=== PATIENT | female | born 1975 | race Two or more races ===

== ENCOUNTER 2017-02-15 10:30 | Emergency (ER) | payer SELFPAY ==
[2017-02-15] MEDS ORDERED: NORMAL SALINE 1000 ML 1,000 ML IV ONE (10:38)
--- NOTE | 2017-02-15 10:39 | ER Document Report ---
ED Medical Screen (RME) - General Chief Complaint: Abdominal Pain Stated Complaint: ABDOMINAL PAIN Time Seen by Provider: 02/15/17 10:37 Mode of Arrival: Ambulatory Information source: Patient, Relative TRAVEL OUTSIDE OF THE [place] IN LAST 30 DAYS: No - HPI Patient complains to provider of: abd pain/diarrhea Onset: Other - pt. with c/o abdominal pain and diarrhea for the past 3-5 days. Denies vomiting. - Related Data Allergies/Adverse Reactions: Penicillins Allergy (Verified 02/15/17 10:34) Past Medical History Renal/ Medical History: Denies: Hx Peritoneal Dialysis Physical Exam - Vital signs Vitals: Temp Pulse Resp BP Pulse Ox 98.6 F 83 20 118/72 98 02/15/17 10:32 02/15/17 10:32 02/15/17 10:32 02/15/17 10:32 02/15/17 10:32 Course - Vital Signs Vital signs: Temp Pulse Resp BP Pulse Ox 98.6 F 83 20 118/72 98 02/15/17 10:32 02/15/17 10:32 02/15/17 10:32 02/15/17 10:32 02/15/17 10:32
--- NOTE | 2017-02-15 11:22 | ER Document Report ---
ED GI/ - General Mode of Arrival: Ambulatory Information source: Patient TRAVEL OUTSIDE OF THE [place] IN LAST 30 DAYS: No - HPI Patient complains to provider of: Abdominal pain, Diarrhea Onset: Other - 3 days Associated symptoms: Other - see above <HERVE JONES - Last Filed: 02/15/17 11:00> <ASHISH WINSTON - Last Filed: 02/15/17 16:28> - General Chief Complaint: Abdominal Pain Stated Complaint: ABDOMINAL PAIN Time Seen by Provider: 02/15/17 10:37 Notes: Patient is a 41 year old female who presents to the ED with complaints of abdominal pain with diarrhea and hot/cold chills x3 days. Patient denies nausea or vomiting. Patient has never had this before. There is no other sick contact. She also has a headache, subjective fever and generalized body aches. History limited due to language barrier. (HERVE JONES) - Related Data Allergies/Adverse Reactions: Penicillins Allergy (Verified 02/15/17 10:34) Past Medical History - General Information source: Patient - Social History Smoking Status: Unknown if Ever Smoked Family History: Reviewed & Not Pertinent Renal/ Medical History: Denies: Hx Peritoneal Dialysis Past Surgical History: Reports: Hx Cholecystectomy <HERVE JONES - Last Filed: 02/15/17 11:00> Review of Systems - Review of Systems Constitutional: See HPI, Chills, Fever EENT: No symptoms reported Cardiovascular: No symptoms reported Respiratory: No symptoms reported Gastrointestinal: See HPI, Abdominal pain, Diarrhea. denies: Nausea, Vomiting Genitourinary: No symptoms reported Female Genitourinary: No symptoms reported Musculoskeletal: See HPI, Other - body aches Skin: No symptoms reported Hematologic/Lymphatic: No symptoms reported Neurological/Psychological: See HPI, Headaches <HERVE JONES - Last Filed: 02/15/17 11:00> Physical Exam - General General appearance: Appears well, Alert In distress: None - HEENT Head: Normocephalic, Atraumatic Eyes: Normal Extraocular movements intact: Yes Pupils: PERRL - Respiratory Respiratory status: No respiratory distress Chest palpation: Normal - Cardiovascular Rhythm: Regular Heart sounds: Normal auscultation Murmur: No - Abdominal Inspection: Normal Distension: No distension Tenderness: Tender - diffuse - Back Back: Normal - Extremities General upper extremity: Normal inspection, Normal ROM General lower extremity: Normal inspection, Normal ROM. No: Edema - Neurological Neuro grossly intact: Yes - Psychological Associated symptoms: Normal affect, Normal mood - Skin Skin Temperature: Warm Skin Moisture: Dry Skin Color: Normal <HERVE JONES - Last Filed: 02/15/17 11:00> - Vital signs Vitals: Temp Pulse Resp BP Pulse Ox 98.6 F 83 20 118/72 98 02/15/17 10:32 02/15/17 10:32 02/15/17 10:32 02/15/17 10:32 02/15/17 10:32 Course <HERVE JONES - Last Filed: 02/15/17 11:00> - Laboratory Result Diagrams: 02/15/17 11:15 02/15/17 11:15 <ASHISH WINSTON - Last Filed: 02/15/17 16:28> - Re-evaluation Re-evalutation: 02/15/17 14:45 It is unclear what is causing this patient to have diarrhea and abdominal pain. The initial history found that she had 3-4 days of diarrhea and discomfort. I am now told that she has had diarrhea for a very long time, it is her usual type of bowel movement, but the abdominal pain is what is new and different. I have called and spoke with her , who is fluent in [place], who reports that she had an ultrasound 2 weeks ago due to abdominal pain. The abdominal pain at that time was central and not focal to the right upper quadrant. He was told the ultrasound was negative. With an unclear cause of ongoing abdominal pain, we will perform a CT scan of the abdomen today. I discussed this with the patient as well and she agrees. We will also test stool for C. difficile and obtain a stool culture given her long history of diarrhea. 02/15/17 16:27 Reexamination at this time finds the patient feeling better, less nausea. She is drinking her contrast for CT. Dr. Maria will assume care of the patient at this time and check on the CT scan. He and I spoke with the patient together. (ASHISH WINSTON) - Vital Signs Vital signs: Temp Pulse Resp BP Pulse Ox 98.6 F 83 20 118/72 98 02/15/17 10:32 02/15/17 10:32 02/15/17 10:32 02/15/17 10:32 02/15/17 10:32 - Laboratory Laboratory results interpreted by me: 02/15/17 02/15/17 11:15 11:15 Potassium 3.4 L Carbon Dioxide 21 L BUN 5 L Urine Ketones TRACE H Urine Blood MODERATE H Discharge <HERVE JONES - Last Filed: 02/15/17 11:00> <ASHISH WINSTON - Last Filed: 02/15/17 16:28> - Discharge Clinical Impression: Diarrhea Qualifiers: Diarrhea type: unspecified type Qualified Code(s): R19.7 - Diarrhea, unspecified Abdominal pain Qualifiers: Abdominal location: generalized Qualified Code(s): R10.84 - Generalized abdominal pain Scribe Documentation - Scribe Written by Scribe:: shashi Hines, 02/15/2017, 1102 acting as scribe for :: Megan <HERVE JONES - Last Filed: 02/15/17 11:00>
[2017-02-15 11:38] LABS: ABSOLUTE LYMPHOCYTES (AUTO) 1.3 10^3/uL (0.5-4.7); ABSOLUTE MONOCYTES (AUTO) 0.6 10^3/uL (0.1-1.4); ABSOLUTE NEUT (AUTO) 6.5 10^3/uL (1.7-8.2); BASOPHILS % (AUTO) 0.3 % (0-2); EOSINOPHILS % (AUTO) 0.3 % (0-6); HEMATOCRIT 39.4 % (36.0-47.0); HEMOGLOBIN 13.3 g/dL (12.0-15.5); HGB HCT DIFFERENCE 0.5; LYMPHOCYTES % (AUTO) 15.8 % (13-45); MEAN CORPUSCULAR HEMOGLOBIN 30.2 pg (27.0-33.4); MEAN CORPUSCULAR HGB CONC 33.8 g/dL (32.0-36.0); MEAN CORPUSCULAR VOLUME 89 fl (80-97); MONOCYTES % (AUTO) 6.7 % (3-13); RED BLOOD COUNT 4.41 10^6/uL (3.72-5.28); RED CELL DISTRIBUTION WIDTH 12.9 % (11.5-14.0); SEGMENTED NEUTROPHILS % (AUTO) 76.9 % (42-78); WHITE BLOOD COUNT 8.5 10^3/uL (4.0-10.5)
[2017-02-15 12:12] LABS: ALANINE AMINOTRANSFERASE 31 U/L (9-52); ALBUMIN 4.3 g/dL (3.5-5.0); ALKALINE PHOSPHATASE 97 U/L (38-126); ANION GAP 13 (5-19); ASPARTATE AMINO TRANSFERASE 25 U/L (14-36); BILIRUBIN,DIRECT 0.4 mg/dL (0.0-0.4); BILIRUBIN,TOTAL 0.5 mg/dL (0.2-1.3); BLOOD UREA NITROGEN 5 mg/dL (7-20); CALCIUM 9.9 mg/dL (8.4-10.2); CARBON DIOXIDE 21 mmol/L (22-30); CHLORIDE 103 mmol/L (98-107); CREATININE RESULT 0.54 mg/dL (0.52-1.25); GLUCOSE 96 mg/dL (75-110); LIPASE 71.2 U/L (23-300); POTASSIUM 3.4 mmol/L (3.6-5.0); SODIUM 137.4 mmol/L (137-145); TOTAL PROTEIN 7.9 g/dL (6.3-8.2)
[2017-02-15 13:15] LABS: APPEARANCE,URINE CLEAR; BILIRUBIN,URINE NEGATIVE (NEGATIVE); GLUCOSE, URINE NEGATIVE (NEGATIVE); KETONES,URINE TRACE mg/dL (NEGATIVE); LEUKOCYTE ESTERASE,URINE NEGATIVE (NEGATIVE); NITRITE,URINE NEGATIVE (NEGATIVE); PROTEIN,URINE NEGATIVE (NEGATIVE); URINE SPECIFIC GRAVITY 1.004; UROBILINOGEN,URINE NEGATIVE mg/dL (<2.0)
--- NOTE | 2017-02-15 14:09 | RADIOLOGY REPORT (SQ) ---
EXAM DESCRIPTION: ACUTE ABDOMEN SERIES COMPLETED DATE/TIME: 02/15/2017 1:50 pm REASON FOR STUDY: abd pain/diarrhea COMPARISON: None. NUMBER OF VIEWS: Three views. TECHNIQUE: Frontal chest, supine abdomen and upright abdomen radiographic images acquired. LIMITATIONS: None. FINDINGS: CHEST: Lungs clear of infiltrates. FREE AIR: None. No abnormal gas collections. BOWEL GAS PATTERN: Nonobstructive pattern. No dilated loops or air fluid levels. CALCIFICATIONS: No suspicious calcifications. HARDWARE: None in the abdomen. SOFT TISSUES: No gross mass or suggestion of organomegaly. BONES: No acute fracture. No worrisome bone lesions. OTHER: No other significant finding. IMPRESSION: NO RADIOGRAPHIC EVIDENCE FOR ACUTE ABDOMINAL DISEASE. TECHNICAL DOCUMENTATION: JOB ID: [id number] [employer]- All Rights Reserved
[2017-02-15] MEDS ORDERED: ONDANSETRON HCL INJ/PF 4 MG/2 ML SDV IV ONE (14:35)
--- NOTE | 2017-02-15 18:35 | RADIOLOGY REPORT (SQ) ---
EXAM DESCRIPTION: CT ABD/PELVIS WITH IV ORAL COMPLETED DATE/TIME: 02/15/2017 6:11 pm REASON FOR STUDY: Abdominal pain COMPARISON: None. TECHNIQUE: CT scan of the abdomen and pelvis performed using helical scanning technique with dynamic intravenous contrast injection. No oral contrast. Images reviewed with lung, soft tissue, and bone windows. Reconstructed coronal and sagittal MPR images reviewed. Delayed images for evaluation of the urinary system also acquired. All images stored on PACS. All CT scanners at this facility use dose modulation, iterative reconstruction, and/or weight based d osing when appropriate to reduce radiation dose to as low as reasonably achievable (ALARA). [facility]: Dose Right [facility]: CareDose [facility]: Dose Right [facility]: Teradose 4D [facility]: Health Benefits Direct CONTRAST TYPE AND DOSE: contrast/concentration: Isovue 370.00 mg/ml; Total Contrast Delivered: 61.0 ml; Total Saline Delivered: 40.0 ml RENAL FUNCTION: None required. The patient is less than 50 years old. RADIATION DOSE: Up-to-date CT equipment and radiation dose reduction techniques were employed. CTDIv ol: 4.8 - 5.4 mGy. DLP: 482 mGy-cm.. LIMITATIONS: None. FINDINGS: LOWER CHEST: No significant findings. No nodules or infiltrates. LIVER: Normal size. No masses. No dilated ducts. SPLEEN: Normal size. No focal lesions. PANCREAS: No masses. No significant calcifications. No adjacent inflammation or peripancreatic fluid collections. Pancreatic duct not dilated. GALLBLADDER: Surgically absent. ADRENAL GLANDS: No significant masses or asymmetry. RIGHT KIDNEY AND URETER: No solid masses. No significant calcifications. No hydronephrosis or hyd roureter. LEFT KIDNEY AND URETER: No solid masses. No significant calcifications. No hydronephrosis or hydr oureter. AORTA AND VESSELS: No aneurysm. No dissection. Renal arteries, SMA, celiac without stenosis. RETROPERITONEUM: No retroperitoneal adenopathy, hemorrhage or masses. BOWEL AND PERITONEAL CAVITY: Mild colonic wall thickening throughout the colon, this may reflect acut e or chronic inflammatory disease. No masses, free fluid or peritoneal masses. APPENDIX: Normal. PELVIS: No mass. No free fluid. Normal bladder. ABDOMINAL WALL: No masses. No hernias. BONES: No significant or acute findings. OTHER: No other significant finding. IMPRESSION: Mild colonic wall thickening throughout the colon, this may reflect acute or chronic inf lammatory disease. No obstruction or fluid collection. TECHNICAL DOCUMENTATION: JOB ID: [id number] Quality ID # [id number]: Final reports with documentation of one or more dose reduction techniques (e.g., Au tomated exposure control, adjustment of the mA and/or kV according to patient size, use of iterative reconstruction technique) 2010 [email or web address]- All Rights Reserved
[2017-02-15 19:35] VITALS: BP 101/63
== END 2017-02-15 19:34 | disposition home or self-care (01) ==
LOC: ER 10:30
DX: R10.84 Generalized abdominal pain (principal); R19.7 Diarrhea, unspecified; R51 Headache; Z90.49 Acquired absence of other specified parts of digestive tract; R50.9 Fever, unspecified
CPT/HCPCS: 99284; 96361; 96374; 36415; 83690; 85025; 81025; 80053; 81001; 87493 ×2; 74022; 74177; J2405; J7030

== ENCOUNTER 2017-08-22 08:42 | Emergency (ER) | payer SELFPAY ==
[2017-08-22 09:50] LABS: APPEARANCE,URINE CLEAR; BILIRUBIN,URINE NEGATIVE (NEGATIVE); COLOR,URINE STRAW; GLUCOSE, URINE NEGATIVE (NEGATIVE); KETONES,URINE NEGATIVE (NEGATIVE); LEUKOCYTE ESTERASE,URINE NEGATIVE (NEGATIVE); NITRITE,URINE NEGATIVE (NEGATIVE); PROTEIN,URINE NEGATIVE (NEGATIVE); URINE SPECIFIC GRAVITY 1.008; UROBILINOGEN,URINE NEGATIVE mg/dL (<2.0)
--- NOTE | 2017-08-22 09:52 | ER Document Report ---
ED General - General Mode of Arrival: Ambulatory Information source: Patient TRAVEL OUTSIDE OF THE [place] IN LAST 30 DAYS: No - General Chief Complaint: Flank Pain Stated Complaint: FLANK PAIN Notes: Patient is a 41 year old female presenting to the emergency department accompanied by friend (who is interpreting for her) complaining of bilateral lower back pain onset 2 days ago. Patient describes the pain as sharp that radiates into her legs and sometimes her neck. Patient states she took some medicine at home that helped alleviate her pain for a brief amount of time. Patient denies any recent injury, numbness, tingling, dysuria, trauma or fevers. Patient is asked if she wants a historical interpreter multiple times but denies wanting one. (CHEKO HARO) - Related Data Allergies/Adverse Reactions: Penicillins Allergy (Verified 02/15/17 10:34) Past Medical History - General Information source: Patient - Social History Smoking Status: Never Smoker Cigarette use (# per day): No Chew tobacco use (# tins/day): No Smoking Education Provided: No Frequency of alcohol use: None Family History: Reviewed & Not Pertinent Past Surgical History: Reports: Hx Cholecystectomy Review of Systems - Review of Systems Constitutional: No symptoms reported EENT: No symptoms reported Cardiovascular: No symptoms reported Respiratory: No symptoms reported Gastrointestinal: No symptoms reported Genitourinary: See HPI, Flank pain Female Genitourinary: No symptoms reported Musculoskeletal: See HPI Skin: No symptoms reported Hematologic/Lymphatic: No symptoms reported Neurological/Psychological: No symptoms reported -: Yes All other systems reviewed and negative Physical Exam - Vital signs Vitals: Temp Pulse Resp BP Pulse Ox 98.0 F 61 16 105/66 100 08/22/17 08:48 08/22/17 08:48 08/22/17 08:48 08/22/17 08:48 08/22/17 08:48 - Notes Notes: GENERAL: Alert, interacts well. No acute distress. HEAD: Normocephalic, atraumatic. EYES: Pupils equal, round, and reactive to light. Extraocular movements intact. ENT: Oral mucosa moist, tongue midline. NECK: Full range of motion. Supple. Trachea midline. LUNGS: Clear to auscultation bilaterally, no wheezes, rales, or rhonchi. No respiratory distress. HEART: Regular rate and rhythm. No murmurs, gallops, or rubs. ABDOMEN: Soft, suprabupic tenderness to palpation. Non-distended. Bowel sounds present in all 4 quadrants. EXTREMITIES: Moves all 4 extremities spontaneously. Negative straight leg raise , causes pain up to just proximal to the popliteal fossa. No edema, radial and dorsalis pedis pulses 2/4 bilaterally. No cyanosis. NEUROLOGICAL: Alert and oriented x3. Normal speech. Sensations intact, no saddle anaesthesia. 5/5 Great toe strength. Biceps and patellar DTRs 2+ bilaterally. PSYCH: Normal affect, normal mood. SKIN: Warm, dry, normal turgor. No rashes or lesions noted. BACK: Tender to palpation to the bilateral paraspinal muscles, no rashes, step- off or deformities. (CHEKO HARO) Course - Re-evaluation Re-evalutation: 08/22/17 10:18 Urinalysis shows small blood but 0 RBCs on microscopic, hCG is negative, no leukocyte esterase or nitrates. Negative straight leg raising test, no saddle anesthesia, no bowel or bladder dysfunction. Examination does not show any red flag symptoms or anything concerning for cauda equina, no evidence of kidney stone or urinary tract infection. Consistent with paraspinal lumbar muscle spasm. Patient will be treated with Toradol and Robaxin and discharged home. ( SUSAN MENDIETA) - Vital Signs Vital signs: Temp Pulse Resp BP Pulse Ox 98.0 F 60 16 101/58 L 99 08/22/17 11:13 08/22/17 11:13 08/22/17 11:13 08/22/17 11:13 08/22/17 11:13 - Laboratory Laboratory results interpreted by me: 08/22/17 09:29 Urine Blood SMALL H Discharge - Discharge Clinical Impression: Lumbar paraspinal muscle spasm Condition: Stable Disposition: HOME, SELF-CARE Instructions: Low Back Pain ([facility]) Prescriptions: Methocarbamol [Robaxin 750 mg Tablet] 750 mg PO ASDIR PRN #40 tablet PRN Reason: Referrals: MILA JACOB MD [COMMUNITY BASED STAFF] - Follow up in 3-5 days Print Language: Kazakh Jeromeibcaro Attestation: 08/22/17 15:53 I personally performed the services described in the documentation, reviewed and edited the documentation which was dictated to the scribe in my presence, and it accurately records my words and actions. (SUSAN MENDIETA) Scribe Documentation - Scribe Written by Kimmy:: Kimmy Issa, 08/22/2017 10:09 acting as scribe for :: Mike
[2017-08-22] MEDS ORDERED: KETOROLAC TROMETHAMINE 60 MG/2 ML SDV IM ONE (10:18)
[2017-08-22] MEDS ORDERED: METHOCARBAMOL 750 MG TABLET PO ONE (10:18)
[2017-08-22 11:14] VITALS: BP 101/58
== END 2017-08-22 11:20 | disposition home or self-care (01) ==
LOC: ER 08:42
DX: M62.830 Muscle spasm of back (principal); Z88.0 Allergy status to penicillin
CPT/HCPCS: 99284; 96372; 81025; 81001; J1885; J3490

== ENCOUNTER 2017-08-24 07:33 | Emergency (ER) | payer SELFPAY ==
--- NOTE | 2017-08-24 08:31 | ER Document Report ---
HPI - HPI Pain Level: 4 - CONSTITUTIONAL Constitutional: DENIES: Fever, Chills - URINARY Urinary: DENIES: Dysuria, Urgency, Frequency - REPRODUCTIVE Reproductive: DENIES: : Past Medical History - Social History Smoking Status: Never Smoker Chew tobacco use (# tins/day): No Frequency of alcohol use: None Drug Abuse: None Family History: Reviewed & Not Pertinent Patient has suicidal ideation: No Patient has homicidal ideation: No Renal/ Medical History: Denies: Hx Peritoneal Dialysis Past Surgical History: Reports: Hx Cholecystectomy Vertical Provider Document - INFECTION CONTROL TRAVEL OUTSIDE OF THE [place] IN LAST 30 DAYS: No - RESPIRATORY O2 Sat by Pulse Oximetry: 100 Course - Vital Signs Vital signs: Temp Pulse Resp BP Pulse Ox 97.8 F 66 18 100/53 L 100 08/24/17 07:40 08/24/17 07:40 08/24/17 07:40 08/24/17 07:40 08/24/17 07:40
[2017-08-24 08:58] LABS: APPEARANCE,URINE CLEAR; BILIRUBIN,URINE NEGATIVE (NEGATIVE); COLOR,URINE STRAW; GLUCOSE, URINE NEGATIVE (NEGATIVE); KETONES,URINE NEGATIVE (NEGATIVE); LEUKOCYTE ESTERASE,URINE NEGATIVE (NEGATIVE); NITRITE,URINE NEGATIVE (NEGATIVE); PROTEIN,URINE NEGATIVE (NEGATIVE); URINE SPECIFIC GRAVITY 1.011; UROBILINOGEN,URINE NEGATIVE mg/dL (<2.0)
[2017-08-24] MEDS ORDERED: LIDOCAINE 5% (700 MG) TRANSDERMAL ADH..PATCH TP ONE (09:42)
[2017-08-24] MEDS ORDERED: DEXAMETHASONE SOD PHOS INJ 10 MG/1 ML VIAL IM ONE (09:42)
[2017-08-24] MEDS ORDERED: ACETAMINOPHEN 325 MG TABLET PO ONE (09:42)
--- NOTE | 2017-08-24 09:48 | ER Document Report ---
HPI - HPI Pain Level: 4 Notes: Patient is a 41-year-old female with no significant past medical history who presents to the ED complaining of bilateral lower back and upper buttock pain 5 days without precipitating known injury. Patient is accompanied by her spouse who is acting as her research and development director today. Patient declines any formal research and development director. Patient states that the pain is primarily to her bilateral back and will radiate up each side of her spine. Patient states that the pain does not radiate into her legs. The pain is worsened with truncal movements. Patient has not had any injections or procedures to her lower back. She denies any smoking or IV drug use. Patient states that she is eating and drinking without any difficulties. She is urinating normally and having normal bowel movements. She has not had any vaginal odor, bleeding, or discharge. Patient describes her pain as a burning sensation. Patient was evaluated 2 days ago and had a negative urine/hCG and was given Toradol and Robaxin. Patient states that those medicines have not really helped. Denies any headache, fever, neck pain, URI, sore throat, chest pain, palpitations, syncope, cough, shortness of breath, wheeze, dyspnea, abdominal pain, nausea/vomiting/diarrhea, urinary retention, dysuria, hematuria, loss of control of bowel or bladder, numbness/ tingling, saddle anesthesia, muscle paralysis/weakness, or rash. - ROS Systems Reviewed and Negative: Yes All other systems reviewed and negative - CONSTITUTIONAL Constitutional: DENIES: Fever, Chills - URINARY Urinary: DENIES: Dysuria, Urgency, Frequency - REPRODUCTIVE Reproductive: DENIES: : Past Medical History - Social History Smoking Status: Never Smoker Chew tobacco use (# tins/day): No Frequency of alcohol use: None Drug Abuse: None Family History: Reviewed & Not Pertinent Patient has suicidal ideation: No Patient has homicidal ideation: No Renal/ Medical History: Denies: Hx Peritoneal Dialysis Past Surgical History: Reports: Hx Cholecystectomy Vertical Provider Document - CONSTITUTIONAL Agree With Documented VS: Yes Notes: PHYSICAL EXAMINATION: GENERAL: Well-appearing, well-nourished and in no acute distress. LUNGS: Breath sounds clear to auscultation bilaterally and equal. No wheezes rales or rhonchi. HEART: Regular rate and rhythm without murmurs, rubs, gallops. ABDOMEN: Soft, nontender, nondistended abdomen. No guarding, no rebound. No masses appreciated. Normal bowel sounds present. No CVA tenderness bilaterally. No pulsatile mass Musculoskeletal: LE's b/l: FROM to passive/active. Strength 5+/5. No deficits noted. No bony tenderness of extremities. Back: FROM to passive/active. Strength 5+/5. No vertebral point tenderness, stepoffs, or deformities. No other bony tenderness, erythema, swelling, or ecchymosis. SLR negative b/l. + tenderness to the L-paraspinal mm b/l. Mild spasming. + b/l SI jt tenderness. No foot drop Extremities: No cyanosis, clubbing, or edema b/l. Peripheral pulses 2+. Capillary refill less than 2 seconds. NEUROLOGICAL: Normal speech, normal gait. Normal sensory, motor exams. Reflexes 2+ b/l. PSYCH: Normal mood, normal affect. SKIN: Warm, Dry, normal turgor, no rashes or lesions noted. - INFECTION CONTROL TRAVEL OUTSIDE OF THE [place] IN LAST 30 DAYS: No - RESPIRATORY O2 Sat by Pulse Oximetry: 100 Course - Re-evaluation Re-evalutation: 08/24/17 10:47 Patient is an afebrile, well-hydrated, 41-year-old female who presents to the ED with lower back pain and sacroiliitis, suspect inflammatory muscle spasming versus muscle strain. Vitals are acceptable. PE is otherwise unremarkable for any focal neurological deficits. L-spine x-ray was unremarkable for any acute pathology. Patient's tenderness is in the paraspinal muscles as well as the SI joints bilaterally. No other labs or imaging warranted at this time based on H& P. Patient was given Decadron as well as Lidoderm patch. Low suspicion for any meningitis, fracture, expanding/ruptured AAA, cauda equina syndrome, epidural mass lesion/abscess, herniated disc causing severe spinal stenosis, or other systemic infection at this time. Patient is aware that this condition can change from initial presentation and that she needs monitor symptoms closely for any acute changes. Recommend conservative measures for symptoms otherwise. Recheck with your PCM in 3-5 days. Consider consult with orthopedics/physical therapy. Return to the ED with any worsening/concerning symptoms otherwise as reviewed discharge. Patient and spouse are in agreement. - Vital Signs Vital signs: Temp Pulse Resp BP Pulse Ox 97.8 F 66 18 100/53 L 100 08/24/17 07:40 08/24/17 07:40 08/24/17 07:40 08/24/17 07:40 08/24/17 08:31 - Laboratory Laboratory results interpreted by me: 08/24/17 08:15 Urine Blood SMALL H Discharge - Discharge Clinical Impression: Bilateral sacroiliitis Low back pain Qualifiers: Chronicity: acute Back pain laterality: bilateral Sciatica presence: without sciatica Qualified Code(s): M54.5 - Low back pain Condition: Stable Disposition: HOME, SELF-CARE Instructions: Ice Packs ([facility]), Low Back Pain ([facility]), Muscle Strain ([facility]), Stretching Exercises for the Back ([facility]), Warm Packs ([facility]) Additional Instructions: Rest, Ice and ice massage Tylenol/ibuprofen as needed Light stretches daily Strength exercises as able Moist heat and massage may help F/u with your PCP in 3-5 days for a recheck Consider consult(s) with Orthopedics/physical therapy for ongoing/worsening symptoms Return to the ED with any worsening symptoms and/or development of fever, headache, chest pain, palpitations, syncope, shortness of breath, trouble breathing, abdominal pain, n/v/d, blood in stool/urine, loss of control of bowel /bladder, urinary retention, muscle weakness/paralysis, saddle anesthesia, numbness/tingling, or other worsening symptoms that are concerning to you. Prescriptions: Naproxen 500 mg PO BID PRN #30 tablet PRN Reason: Referrals: [facility] ([facility] [Provider Group] - Follow up as needed
--- NOTE | 2017-08-24 10:44 | RADIOLOGY REPORT (SQ) ---
EXAM DESCRIPTION: L SPINE WHOLE COMPLETED DATE/TIME: 08/24/2017 10:17 am REASON FOR STUDY: low back pain COMPARISON: None. NUMBER OF VIEWS: Five views including obliques. TECHNIQUE: AP, lateral, oblique, and sacral radiographic images acquired of the lumbar spine. LIMITATIONS: None. FINDINGS: MINERALIZATION: Normal. SEGMENTATION: Transitional vertebra. ALIGNMENT: Normal. VERTEBRAE: Maintained height. No fracture or worrisome bone lesion. DISCS: Preserved height. No significant osteophytes or end plate irregularity. POSTERIOR ELEMENTS: Pedicles and facets are intact. No pars defect or posterior arch defects. HARDWARE: None in the spine. PARASPINAL SOFT TISSUES: Normal. PELVIS: Intact as visualized. No fractures or worrisome bone lesions. SI joints intact. OTHER: No other significant finding. IMPRESSION: No acute findings. TECHNICAL DOCUMENTATION: JOB ID: [id number] [employer]- All Rights Reserved Reading location - IP/workstation name: [email or web address]
[2017-08-24] MEDS ORDERED: HYDROCODONE/ACETAMINOPHEN 5-325 MG (6 TAB/ER DISP) PO PRN (10:48)
[2017-08-24 11:09] VITALS: BP 100/59
== END 2017-08-24 11:10 | disposition home or self-care (01) ==
LOC: ER 07:33
DX: M46.1 Sacroiliitis, not elsewhere classified (principal); M54.5 Low back pain; M54.89 Other dorsalgia; Z90.49 Acquired absence of other specified parts of digestive tract
CPT/HCPCS: 99283; 96372; 81001; 72110; J1100

== ENCOUNTER 2017-10-11 20:29 | Emergency (ER) | payer SELFPAY ==
[2017-10-11 20:43] VITALS: BP 105/68
[2017-10-11] MEDS ORDERED: HYDROCODONE/ACETAMINOPHEN 5-325 MG TABLET PO ONE (21:29)
--- NOTE | 2017-10-11 21:31 | ER Document Report ---
HPI - HPI Patient complains to provider of: Low back pain Onset: Other - 5 days Onset/Duration: Persistent Quality of pain: Achy Pain Level: 4 Context: Patient presents complaining of low back pain for the past 5 days. Patient reports that pain does radiate into her right lower extremity down the posterior aspect of the level of her calf. Patient denies any fever. Patient denies any radiculopathy or paresthesia. Patient denies any urinary retention or incontinence. Associated Symptoms: Other - Low back pain. denies: Fever, Headache Exacerbated by: Movement Relieved by: Denies Similar symptoms previously: Yes Recently seen / treated by doctor: No Notes: Patient was offered pharmacy informatics specialist services by use of [employer], patient declined preferring to have her friend translate for her. Patient with broken Chinese and able to understand the majority of what was said. - ROS ROS below otherwise negative: Yes Systems Reviewed and Negative: Yes All other systems reviewed and negative - CONSTITUTIONAL Constitutional: DENIES: Fever, Chills - NEURO Neurology: DENIES: Headache, Weakness, Vision blurred, Dizzinesss / Vertigo - REPRODUCTIVE LMP: 10-04-17 Reproductive: DENIES: : - MUSCULOSKELETAL Musculoskeletal: REPORTS: Extremity pain, Back Pain - DERM Skin Color: Normal Skin Problems: None Past Medical History - General Information source: Patient, Friend - Social History Smoking Status: Never Smoker Frequency of alcohol use: None Drug Abuse: None Occupation: None Lives with: Family Family History: Reviewed & Not Pertinent Patient has suicidal ideation: No Patient has homicidal ideation: No - Medical History Medical History: Negative Renal/ Medical History: Denies: Hx Peritoneal Dialysis Past Surgical History: Reports: Hx Cholecystectomy Vertical Provider Document - CONSTITUTIONAL Agree With Documented VS: Yes Exam Limitations: No Limitations General Appearance: WD/WN, No Apparent Distress Notes: PHYSICAL EXAMINATION: GENERAL: Well-appearing, well-nourished and in no acute distress. HEAD: Atraumatic, normocephalic. EYES: sclera clear, anicteric, conjunctiva are normal. ENT: nares patent, Moist mucous membranes. NECK: Normal range of motion, supple no lymphadenopathy LUNGS: respirations unlabored HEART: Regular rate and rhythm without murmurs EXTREMITIES: Normal range of motion, no pitting or edema. No cyanosis. Gait normal, pt ambulates without difficulty BACK: lower lumbar paraspinal tenderness,no midline tenderness, no deformities or step-offs. NEUROLOGICAL: Cranial nerves grossly intact. Normal speech, normal gait. No saddle anesthesia. 2+ bilateral patellar reflexes, no footdrop PSYCH: Normal mood, normal affect. SKIN: Warm, Dry, normal turgor, no rashes or lesions noted. - INFECTION CONTROL TRAVEL OUTSIDE OF THE [place] IN LAST 30 DAYS: No Course - Re-evaluation Re-evalutation: 10/11/17 22:41 The patient presents with low back pain without signs of spinal cord compression , cauda equina syndrome, infection, aneurysm, or other serious etiology. The patient is neurologically intact. Given the extremely risk of these diagnoses further testing and evaluation for these possibilities does not appear to be indicated at this time. Patient has been instructed to return if the symptoms worsen or change in any way. No concern for UTI or pyelonephritis at this time. - Vital Signs Vital signs: Temp Pulse Resp BP Pulse Ox 99.1 F 73 16 105/68 98 10/11/17 20:42 10/11/17 20:42 10/11/17 20:42 10/11/17 20:42 10/11/17 20:42 - Diagnostic Test Radiology reviewed: Reports reviewed - Reviewed x-ray report from 08/24/2017 visit Discharge - Discharge Clinical Impression: Low back pain Qualifiers: Chronicity: unspecified Back pain laterality: right Sciatica presence: with sciatica Sciatica laterality: sciatica of right side Qualified Code(s): M54.41 - Lumbago with sciatica, right side Condition: Stable Disposition: HOME, SELF-CARE Instructions: Ice Packs ([facility]), Low Back Pain ([facility]), Oral Narcotic Medication ( [facility]), Sciatica ([facility]) Additional Instructions: Return immediately for any new or worsening symptoms Followup with your primary care provider, call tomorrow to make a followup appointment Prescriptions: Hydrocodone/Acetaminophen [[place] 5-325 Tablet] 1 each PO Q6 PRN #12 tablet PRN Reason: Naproxen [Naprosyn 250 Nmg Tablet] 1 tab PO BID #14 tablet Referrals: [facility] [Provider Group] - Follow up as needed [facility] [Provider Group] - Follow up as needed
[2017-10-11 22:27] LABS: APPEARANCE,URINE SLIGHTLY-CLOUDY; BILIRUBIN,URINE NEGATIVE (NEGATIVE); COLOR,URINE YELLOW; GLUCOSE, URINE NEGATIVE (NEGATIVE); KETONES,URINE NEGATIVE (NEGATIVE); LEUKOCYTE ESTERASE,URINE NEGATIVE (NEGATIVE); NITRITE,URINE NEGATIVE (NEGATIVE); PROTEIN,URINE NEGATIVE (NEGATIVE); UROBILINOGEN,URINE NEGATIVE mg/dL (<2.0)
== END 2017-10-11 23:00 | disposition home or self-care (01) ==
LOC: ER 20:29
DX: M54.41 Lumbago with sciatica, right side (principal)
CPT/HCPCS: 81001; 99283